=== PATIENT | female | born 1940 | race Caucasian/White ===

== ENCOUNTER → 2017-08-18 | Outpatient (CLI) | payer MEDICARE, OTHER ==
[~2017-08-18] MED LIST: CAPZASIN HP TOP; CELEBREX 200 M200 MG PO; MULTIVITAMINS1 EAC7 PO; SYNTHROID75 MCG PO
--- NOTE | 2017-08-24 14:44 | PAINCON ---
[address] [address] PAIN MANAGEMENT CONSULTATION Name: SHMUEL BOLANOS Room: [facility] Sung#: [id number] Admission: 08/18/17 Attend Phys: Bryon Beasley MD Discharge: Date of : 38 Report #: [id number] THIS REPORT FOR: //name// CC: Karyn Beasley DATE OF SERVICE: 08/18/2017 CHIEF COMPLAINT: Low back pain, left side greater than the right and it is radiating down into my left hip." HISTORY OF PRESENT ILLNESS: The patient is a 77-year-old female who has been referred to the pain clinic for evaluation of back and leg pain. She has noted since 2006 some radiation of pain down into her left hip. She has had similar pain in the past and undergone epidural steroid injections. At that juncture, she noticed that they were helpful. She has had x-rays of her lumbar spine, which showed significant lumbar spondylosis and chronic compression deformity involving T11. She has had physical therapy and felt that this was somewhat helpful. She has taken nonsteroidal anti-inflammatory medications. Voltaren has been used. This has caused some upset stomach conditions. She has had some problem with TMJ and is seen her physician in that regard. She notes that her pain is worse if she is standing for a prolonged period of time. She fell in 2017 and feels that may have caused some worsening of the pain and discomfort. Described as shooting, aching, gnawing, sharp and stabbing ____ on a daily basis at 4-5. She denies any significant change in character of her bowel or bladder function as a result of the back pain. ALLERGIES: No known drug allergies. CURRENT MEDICATIONS: Include capsaicin to apply daily, levothyroxine 75 mcg daily, multivitamin. The patient did take Voltaren and stopped its use of 100 mg daily secondary to some stomach discomfort after taking it for about 3-4 weeks. PAST MEDICAL HISTORY: GERD, arthritis, breast cancer, lymphedema, neuropathy, hypercholesterolemia, migraine headaches, osteopenia, and history of TMJ. PAST SURGICAL HISTORY: Appendectomy and tonsillectomy as a child, two D and C, cholecystectomy, thumb surgery, cataract surgery, mastectomy in 2010 secondary to breast cancer, several skin cancers. FAMILY HISTORY: Mother at age 93. Father with colon problems at 85. Brother at 76 with aneurysm and hypertension. Daughter alive at 43 and healthy. Spouse at 73 of lung cancer. One daughter alive and healthy. [place] [address] PAIN MANAGEMENT CONSULTATION Name: SHMUEL BOLANOS Room: [facility]#: [id number] Admission: 08/18/17 Attend Phys: Bryon Beasley MD Discharge: Date of : 38 Report #: [id number] SOCIAL HISTORY: She is a retired special education science teacher, retired in 1998. Denies use of tobacco. Denies use of alcoholic beverages. Lives with her daughter and son-in-law. REVIEW OF SYSTEMS: Wears glasses, had surgery for cataracts, ringing in the ears, mouth sores, frequent cough, painful bowel movements, joint stiffness and swelling, weakness of muscles and joints, muscle pain and cramps, back pain, recurring headaches, lightheadedness, numbness and tingling sensation. ADDENDUM PAIN CLINIC ASSESSMENT: 1. Osteoarthritis. The patient is being treated for osteoarthritis. 2. Height 5 feet 5 inches, weight is 174 pounds, BMI is 29. 3. Vital signs: Blood pressure 158/87, heart rate 84, respiratory rate 16, room air saturation 97, temperature 97.5. 4. Pain intensity 1-2 today. 5. Fall risk. The patient fell in 2017, but has not fallen in the last 3 months. 6. The patient is not on a blood thinner. 7. History of hypertension. The patient is not being treated for hypertension. 8. Opioid therapy. The patient is not on an opioid therapy regimen. 9. Risk assessment tool, functional assessment tool. 10. Tobacco, the patient denies use of tobacco. Alcohol, the patient rarely uses alcoholic beverages. Bone scan whole body dated 07/26/2017 reveals findings of increased tracer uptake laterally on the L3, L4 and L5 vertebral bodies. Facet hypertrophy is noted on radiographs and this may account for the tracer uptake. Focal increased tracer uptake on the right lateral rib, perhaps the seventh. Uptake is nonspecific. Increased tracer uptake in the lower cervical spine is nonspecific, but may be degenerative. Asymmetric mild increased tracer uptake in the left temporal region is indeterminate. The tracer distribution in the soft tissue appears normal. IMPRESSION: Facet hypertrophy may account for increased tracer uptake in the L3, L4, and L5 vertebral bodies. Focal increased tracer uptake in the right lateral rib. Correlate to any point tenderness of history of trauma. PHYSICAL EXAMINATION: VITAL SIGNS: Blood pressure as stated above. GENERAL: The patient is a well-developed white female. Appearance, appears her stated age. The patient is wearing a compression garment on her arm secondary to lymphedema after her mastectomy in 2010. Orientation, the patient is alert and oriented x 3. Affect, the patient's affect appears appropriate. HEENT: Normocephalic, atraumatic. Hearing seems to be within normal limits. [address] [address] PAIN MANAGEMENT CONSULTATION Name: DOMINGA BOLANOSLuigi Michelle Room: [facility]#: [id number] Admission: 08/18/17 Attend Phys: Bryon Beasley MD Discharge: Date of : 38 Report #: [id number] The patient has a history of TMJ, which is still somewhat problematic. NECK: No JVD or bruits. LUNGS: Clear to auscultation. HEART: Regular rate. UPPER EXTREMITIES: Upper extremities judged to be 5/5 for the major muscle groups in the upper extremities. Deep tendon reflexes are +1 at the biceps bilaterally. Muscle bulk is symmetric. ABDOMEN: Nontender. MUSCULOSKELETAL: Appears to have normal alignment. Gait appears normal. Chronic low back pain in the lumbar area in the left and right paraspinous areas. The patient has pain and discomfort, which is radiating down the left side of her buttocks into the lateral portion of her thigh. Has an occasional pain that radiates down the right portion of her back and into the buttocks. Muscles bulk is symmetrical in the lower extremities. The patient notes increased pain and discomfort, particularly when she is turning and sometimes at home when carrying items. IMPRESSION: 1. Low back pain with pain radiating down the left side in the left paraspinal area and into the left lateral thigh. History of lumbar radiculopathy in the past with improvement after epidural steroid injection. 2. Gastroesophageal reflux disease. 3. Arthritis. 4. Lymphedema due to neuropathy. 5. History of breast cancer with lymphedema. 6. Temporomandibular joint. The patient has been seen by her physician regarding temporomandibular joint. 7. Chronic back pain. 8. Anxiety. RECOMMENDATIONS: We discussed the options with the patient. She states that she has undergone physical therapy, which was somewhat beneficial. She also states that she has seen a chiropractor. She continues to have chronic back pain. States that she is having pain that is radiating down the lower portion of her back with pain radiating down the left lateral side in the L4-L5 distribution. She notes that she is having some difficulty getting in and out of the van because of the pain and discomfort she is experiencing. Has difficulty getting in and out of a car. Notes that she is having more pain and has difficulty and increased pain when she sleeps on her left side. We have discussed possibility of an epidural steroid injection. The patient again felt that this was helpful when she had similar pain in the past. She does have some problems with gastroesophageal reflux. She felt that the Voltaren caused some increased GI complaints at 100 mg per day. Does take Aleve p.r.n. We have discussed the possibility of Celebrex for a limited amount of time. It sometimes is better tolerated than some of the other nonsteroidal anti-inflammatory medications. We will write for a script for this medication[place] [address] PAIN MANAGEMENT CONSULTATION Name: RAMIRODOMINGA RenaeLuigi Michelle [id number] Admission: 08/18/17 Attend Phys: Bryon Beasley MD Discharge: Date of : 38 Report #: [id number] She will note its efficacy. We will consider a lumbar epidural steroid injection if her pain continues to be problematic. She will follow up in the Pain Clinic as needed. We would like to thank you for letting us participate in her care. We hope she continues to improve. <ELECTRONICALLY SIGNED> By: Bryon Beasley MD 08/24/17 [id number] 2001N. Gal Beasley MD /nt
== END ==
LOC: M.PC 01:35
DX: M47.896 Other spondylosis, lumbar region (principal); M19.90 Unspecified osteoarthritis, unspecified site; I10 Essential (primary) hypertension; Z79.891 Long term (current) use of opiate analgesic

== ENCOUNTER → 2018-02-17 | Outpatient (CLI) | payer MEDICARE, OTHER | LOC: M.RAD 10:18 | DX: Z12.31 Encounter for screening mammogram for malignant neoplasm of breast (principal); E78.00 Pure hypercholesterolemia, unspecified; K21.9 Gastro-esophageal reflux disease without esophagitis; M85.89 Other specified disorders of bone density and structure, multiple sites; M19.90 Unspecified osteoarthritis, unspecified site; G43.909 Migraine, unspecified, not intractable, without status migrainosus ==

== ENCOUNTER → 2019-02-16 | Outpatient (CLI) | payer MEDICARE, OTHER | LOC: M.RAD 10:30 | DX: Z12.31 Encounter for screening mammogram for malignant neoplasm of breast (principal) ==

== ENCOUNTER → 2020-02-25 | Outpatient (CLI) | payer MEDICARE, OTHER | LOC: M.RAD 10:08 | PROVIDERS: ATTEND Family Medicine | DX: Z12.31 Encounter for screening mammogram for malignant neoplasm of breast (principal) ==

== ENCOUNTER → 2021-02-17 | Outpatient (CLI) | payer MEDICARE, OTHER | LOC: M.RAD 10:10 | PROVIDERS: ATTEND Family Medicine | DX: Z12.31 Encounter for screening mammogram for malignant neoplasm of breast (principal); Z85.3 Personal history of malignant neoplasm of breast; Z90.11 Acquired absence of right breast and nipple ==